=== PATIENT | male | born 1960 | race Two or more races ===

== ENCOUNTER 2019-02-20 13:08 | Emergency (ER) | payer MEDICAID ==
[~2019-02-20] VITALS: Ht 172.7 cm; Wt 97.5 kg
[2019-02-20] MEDS ORDERED: JANUVIA100 MG ORAL (13:22)
[2019-02-20] MEDS ORDERED: METFORMIN HYD1000 GM MC (13:22)
[2019-02-20 13:36] VITALS: BP 137/83
--- NOTE | 2019-02-20 13:38 | NUR ---
ED Nurse Note: pt walked in to ER c/o coughing for 2 months with white and clear phlem. pt aao x4 and Indonesian speaker. skin clean and intact and pt is ambulatory.
--- NOTE | 2019-02-20 13:52 | Emergency Room Report ---
History of Present Illness General Chief Complaint: Upper Respiratory Illness Source: Patient Present Illness HPI 58-year-old male presents to the emergency department complaining of persistent productive cough for over 2 months despite finishing course of oral antibiotics. Patient denies fevers or chills he reports the cough is worse at night he states he has a history of diabetes type 2 for which she takes insulin and pills for. Patient reports that his sugars are somewhat managed that regularly up into the 300s. Patient denies recent travel or ill contacts with similar symptoms he denies smoking history he denies history of asthma or COPD. Reports 5 out of 10 in severity pain in the rib cage area when coughing persistently. Patient does report that on occasion he has felt some epigastric burning sensation similar to acid reflux. Allergies: Coded Allergies: No Known Allergies (Unverified , 02/20/19) Patient History Past Medical History: see triage record Past Surgical History: none Pertinent Family History: none Reviewed Nursing Documentation: PMH: Agreed; PSxH: Agreed Nursing Documentation-PMH Past Medical History: No History, Except For Hx Asthma: Yes Hx Diabetes: Yes Review of Systems All Other Systems: negative except mentioned in HPI Physical Exam Vital Signs Date Time Temp Pulse Resp B/P (MAP) Pulse Ox O2 Delivery O2 Flow Rate FiO2 02/20/19 13:16 98.8 90 16 137/83 96 Room Air Sp02 EP Interpretation: reviewed, normal General Appearance: no apparent distress, alert, GCS 15, non-toxic Head: normocephalic, atraumatic Eyes: bilateral eye normal inspection, bilateral eye PERRL ENT: hearing grossly normal, normal voice Neck: full range of motion Respiratory: chest non-tender, lungs clear, normal breath sounds, no respiratory distress, no accessory muscle use, no wheezing, speaking full sentences Cardiovascular #1: regular rate, rhythm, no edema Gastrointestinal: non tender, soft Musculoskeletal: back normal, gait/station normal, normal range of motion, non- tender Neurologic: alert, oriented x3, responsive, motor strength/tone normal, sensory intact, speech normal, grossly normal Psychiatric: judgement/insight normal Skin: normal color, no rash, warm/dry, well hydrated Medical Decision Making PA Attestation Dr. Lyons is my supervising Physician whom patient management has been discussed with. Diagnostic Impression: Primary Impression: Cough Additional Impression: Post-nasal drainage ER Course 58-year-old male presents to the emergency department complaining of persistent productive cough for over 2 months despite finishing course of oral antibiotics. Patient denies fevers or chills he reports the cough is worse at night he states he has a history of diabetes type 2 for which she takes insulin and pills for. Patient reports that his sugars are somewhat managed that regularly up into the 300s. Patient denies recent travel or ill contacts with similar symptoms he denies smoking history he denies history of asthma or COPD. Reports 5 out of 10 in severity pain in the rib cage area when coughing persistently. Patient does report that on occasion he has felt some epigastric burning sensation similar to acid reflux. Ddx considered but are not limited to URI, pneumonia, PE, strep pharyngitis, meningitis, GERD, UT just to name a few. Vital signs: Pt. is afebrile, the remaining VS are WNL H&PE are most consistent with URI- no meningeal signs, oropharynx is not involved, no evidence of bacterial infection at this time. ORDERS: -CXR: WNL ED INTERVENTIONS: None required at this time. --PT. EDUCATION: Discussed antibiotic resistance with inappropriate prescribing of antibiotics for viral illnesses. Discussed signs and symptoms to indicate viral illness versus bacterial illness. DISCHARGE: At this time pt. is stable for d/c to home. Will provide printed patient care instructions, and any necessary prescriptions. Care plan and follow up instructions have been discussed with the patient prior to discharge. Chest X-Ray Diagnostic Results Chest X-Ray Diagnostic Results : Chest X-Ray Ordered: Yes # of Views/Limited/Complete: 1 View Indication: Chest Pain EP Interpretation: Yes RONALDO Xray: Interpretation reviewed, by supervising MD, and agrees with findings. Interpretation: no consolidation, no effusion, no pneumothorax, no acute cardiopulmonary disease Impression: No acute disease Electronically Signed by: Sandee Louis PA-C Last Vital Signs Date Time Temp Pulse Resp B/P (MAP) Pulse Ox O2 Delivery O2 Flow Rate FiO2 02/20/19 13:36 90 16 Room Air 02/20/19 13:36 98.8 137/83 96 Status: improved Disposition: HOME, SELF-CARE Condition: Stable Scripts Ranitidine Hcl* (ZANTAC*) 150 Mg Tablet 150 MG ORAL TWICE A DAY, #30 TAB Prov: Sandee Louis 02/20/19 Diphenhydramine Hcl (BENADRYL ALLERGY) 25 Mg Tablet 25 MG PO QHS, #30 TAB Prov: Sandee Louis 02/20/19 Patient Instructions: Food Choices for Gastroesophageal Reflux Disease, Adult, [id number], Upper Respiratory Infection, Adult Additional Instructions: Take medications as directed. Follow up with a Primary Care Provider in 3-5 days, even if your symptoms have resolved. --Please review list of primary care clinics, if you do not already have a primary care provider Return sooner to ED if new symptoms occur, or current symptoms become worse. - Please note that this Emergency Department Report was dictated using [employer] technology software, occasionally this can lead to erroneous entry secondary to interpretation by the dictation equipment. Sandee Louis Feb 20, 2019 13:52
[2019-02-20] MEDS ORDERED: ZANTAC150 MG ORAL (14:36)
[2019-02-20] MEDS ORDERED: BENADRYL ALLERG25 M1 PO (14:36)
[2019-02-20 14:40] VITALS: BP 141/65
--- NOTE | 2019-02-20 14:40 | NUR ---
ER DISCHARGE NOTE: Patient is cleared to be discharged per ERMD, pt is aox4, accompanied by family member, on room air, with stable vital signs. pt was given dc and prescription instructions, pt was able to verbalize understanding, pt id band removed. pt is able to ambulate with steady gait. pt took all belongings.
--- NOTE | 2019-02-20 14:57 | Diagnostic Imaging Report ---
Indication: Chest pain Technique: XRAY Chest 1v Comparison: None Findings: Mild cardiomegaly suggested although this may be exaggerated by AP technique. Mediastinal contours are sharp. There is no focal consolidation, pneumothorax or pleural effusion. Osseous structures demonstrate no acute abnormality. IMPRESSION: No radiographic evidence of acute cardiopulmonary disease. Mild cardiomegaly suggested although this may be exaggerated by AP technique
== END 2019-02-20 14:40 | disposition home or self-care (01) ==
LOC: EMR 13:54
DX: R05 Cough (principal); R09.82 Postnasal drip; J45.909 Unspecified asthma, uncomplicated; E11.9 Type 2 diabetes mellitus without complications
CPT/HCPCS: 71045; 99283